=== PATIENT | female | born 1950 | race Asian ===

== ENCOUNTER 2019-04-15 14:30 | Inpatient (IN) | payer MEDICARE, SELFPAY ==
[2019-04-15] VITALS (8 sets, daily range): BP systolic 115–164; BP diastolic 50–70; PULSE 72–74; RESP 13–17; TEMP 36.6–38.5; O2SAT 97–99
--- NOTE | ~2019-04-15 | XR_ITS ---
EXAMINATION: XR chest 2V 04/15/2019 15:41 INDICATION: Cough and fever. PICC line placement. PROCEDURE: AP and lateral views of the chest COMPARISON: No prior studies for comparison. FINDINGS: The lungs are clear. The cardiomediastinal silhouette is within normal limits. There are no pleural effusions. There is no pneumothorax suspected. Right subclavian PICC line, tip in the ca udal aspect of the SVC. IMPRESSION: 1: NO ACUTE CARDIOPULMONARY DISEASE. Reviewed, dictated and finalized at location A. ING SPECIALIST
--- NOTE | 2019-04-15 14:36 | ED.GENADULT ---
HPI - General Adult General Chief complaint: Upper Respiratory Infection Stated complaint: cough/high blood sugar Time Seen by Provider: 04/15/19 14:35 Source: patient Mode of arrival: ambulatory Limitations: no limitations History of Present Illness HPI narrative: The pt is a 69 y/o female who presents to the ED with c/o a phlegm-producing cough that began 5 days ago. The pt states that she was seen at Urgent Care, where providers suspected that the pt has pneumonia. The pt reports fever, ROSA, sore throat, and chills, but denies CP, rhinorrhea, or sneezing. The pt has PMHX of DM, HTN, HLD, and cervical CA when she was younger. She last saw her doctor 2 weeks ago for TPN, which she receives due to malnutrition. She states that she has had poor nutrition since last June because eating is painful and makes her nauseous. complaint: Cough Onset (ago): day(s) Quality: other (phlegm-producing) Associated symptoms: fever/chills, headaches and other (sore throat) Related Data Home Medications Medication Instructions Recorded Confirmed Vitamin D2 5,000 unit PO DAILY 04/15/19 04/15/19 aspirin [Aspir-81] 1 mg PO DAILY 04/15/19 04/15/19 metoprolol succinate 200 mg PO DAILY 04/15/19 04/15/19 vitamin B complex [B 1 tablet PO DAILY 04/15/19 04/15/19 Complex-Vitamin B12] vitamin E 1,000 unit PO DAILY 04/15/19 04/15/19 Allergies Allergy/AdvReac Type Severity Reaction Status Date / Time No Known Allergies Allergy Verified 04/15/19 15:14 Review of Systems Review of Systems: All systems reviewed & are unremarkable except as noted in HPI and below Constitutional: Constitutional: Reports chills and Reports fever(s) ENT: Reports sore throat and Denies other (rhinorrhea, sneezing) Cardiovascular: Cardiovascular: Denies chest pain Respiratory: Respiratory: Reports cough Neurologic: Reports headache(s) REPLACED BY [facility] Past Medical History Medical History (Updated 04/15/19 @ 22:35 by Dorcas Mariee DO) Chronic anemia Iron deficiency anemia Diabetes Hyperlipidemia Hypertension On total parenteral nutrition Severe protein-calorie malnutrition on TPN 9:00 p.m. to 5:00 a.m. 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 Code status: Full code per EMR. She does not have advance directives. Smoking packs per day: 2 Smoking cigarettes per day: 40.0 Years smoked: 25 Smoking pack-years: 50.00 Smoking status: Former smoker Tobacco type: cigarettes Smoking end date: 03/18/89 Additional smoking assessment comments: The patient smoked 2 packs per for 25 years. She quit smoking 40 Alcohol intake: current Alcohol use details: The patient drinks an occasional glass a wine. Substance use: never Substance use type: does not use Living arrangements: with family Additional living arrangements comments: she lives in [place] with her of 29 years. Occupation/Education: occupation [employer]
--- NOTE | 2019-04-15 14:52 | ECG_ITS ---
Measurements Intervals [place] Rate: 75 P: -11 [place]: 123 QRS: -20 QRSD: 95 T: 26 QT: 348 QTc: 389 Interpretive Statements SINUS RHYTHM BASELINE ARTIFACT- I, II, III, AVR, AVL, AVF, V1-V2 NORMAL ECG Electronically Signed On 04-15-2019 16:05:29 [employer] by Timbo Spivey D.O.
[2019-04-15 15:15] LABS: Alveolar/Arterial O2 Gradient 31.1 mmHg; Base Excess ABG -1.6 mEq/l (+/-2.0); Device ROOM AIR; Fractional Inspired Oxygen 21 %; HCO3 ABG 22.3 mEq/l (22.0-26.0); Oxygen Content ABG 12.4 %vol (16.0-22.0); Oxyhemoglobin 92.1 % THb (90.0-100.0); PCO2 ABG 34.1 mmHg (35.0-45.0); PO2 ABG 77.8 mmHg (80.0-100.0); Site Drawn LEFT BRACHIAL; Total Hemoglobin 9.5 g/dL (12.0-18.0); pH ABG 7.433 (7.350-7.450)
[2019-04-15] MEDS: SODIUM CHLORIDE 0.9% IV 1,000 ML 999 ML IV CONT ×2 (15:16→17:05)
[2019-04-15] MEDS: ACETAMINOPHEN 325 MG TABLET 650 MG PO (15:16)
[2019-04-15 15:19] LABS: Basophils Percent Auto 0.2 % (0.2-1.2); Eosinophils Percent Auto 0.2 % (0-4.4); Hemoglobin 9.2 g/dL (12.0-15.0); Immature Granulocyte Absolute 0.07 K/mm3 (0.00-0.031); Immature Granulocyte Percent A 1.3 % (0-0.5); Immature Platelet Fraction Pct 8.6 % (0.9-11.2); Lymphocytes Absolute Auto 0.71 K/mm3 (0.9-3.2); Lymphocytes Percent Auto 12.7 % (18.3-44.2); Mean Corpuscular HGB Conc 30.7 g/dl (32-36); Mean Corpuscular Hemoglobin 22.8 pg (26-34); Mean Corpuscular Volume 74.4 fl (80-100); Monocytes Absolute Auto 0.2 K/mm3 (0.1-0.6); Monocytes Percent Auto 3.2 % (2.6-8.5); Neutrophils Absolute Auto 4.6 K/mm3 (1.3-6.7); Neutrophils Percent Auto 82.4 % (45.5-73.1); Nucleated Red Blood Cells Perc 0.5 % (0.0-0.2); Platelet Count Result 96 k/mm3 (150-375); Red Blood Count 4.03 M/mm3 (4.2-5.4); Red Cell Distribution Width 17.3 % (11.5-14.5); White Blood Count 5.6 K/mm3 (4.5-10.0)
[2019-04-15 15:30] LABS: Lactic Acid Reflex 1.6 mmol/L (0.7-2.1)
[2019-04-15 15:30] LABS: Add Urine Microscopic? YES; Appearance Urine Cloudy (Clear); Bacteria Urine Trace /hpf; Bilirubin Urine Negative (Negative); Blood Urine 2+ (Negative); Color Urine Yellow (Yellow); Glucose Urine UA 3+ mg/dL (Negative); Ketones Urine Negative (Negative); Leukocyte Esterase Ur Negative LEU/UL (Negative); Mucus Urine Rare /lpf; Nitrate Urine Negative (Negative); Protein Urine 1+ mg/dL (Negative); RBC Urine 0-2 /hpf (0-2); Specific Grav Ur 1.017 (1.001-1.035); Urobilinogen Urine Negative mg/dL (<2.0); WBC Urine 0-3 /hpf
[2019-04-15 15:32] LABS: Alanine Aminotransferase 35 U/L (4-35); Albumin Level 3.5 g/dL (3.5-5.1); Alkaline Phosphatase 197 U/L (38-126); Aspartate Amino Transferase 75 U/L (14-36); Bilirubin,Total 0.7 mg/dL (0.2-1.3); Blood Urea Nitrogen 28 mg/dL (7-17); Calcium 9.1 mg/dL (8.4-10.2); Carbon Dioxide 24 mmol/L (22-30); Chloride 94 mmol/L (98-107); Estimated CRCL calculation 40 ml/min; Estimated Glomerular Filt Rate > 60; Glucose 452 mg/dL (65-105); Potassium 3.8 mmol/L (3.4-5.0); Sodium 129 mmol/L (137-145)
[2019-04-15 15:44] LABS: CRP 25.6 mg/dL (<1.0)
--- NOTE | 2019-04-15 16:32 | PC.NURSE ---
PER [facility] EDP DR FREEDMAN PT MAY HAVE SOUP ORDERED, CALLED DIETARY AND PLACED ORDER AT THIS TIME.
[2019-04-15] MEDS: INSULIN HUMAN REGULAR (*BKC) 100 UNITS/ML IV PUSH (17:03)
[2019-04-15] MEDS: OSELTAMIVIR PHOSPHATE 30 MG CAPSULE PO (17:50)
--- NOTE | 2019-04-15 19:01 | ADMGEN ---
This patient, Arielle Marinelli, was admitted to 3 Medical Room 341-01. Patient/family oriented to hospital policies and general routines including ID bracelet, bed and alarms, visiting hours, pain management, procedures, bathroom and other care routines, personal items, smoking policy, room service/diet, and visiting hours. Valuables list has been completed. Information on how to activate the Rapid Response Team has been discussed. Patient/Family are encouraged to report perceived risks to care and to ask questions if they do not understand what they are told or what they should do. Received from ER via stretcher at 1800. Family at bedside.
[2019-04-15] MEDS: LACTATED RINGERS 1,000 ML 125 ML IV CONT (20:28)
[2019-04-15 20:49] LABS: Glucose Point of Care 380 (65-105)
[2019-04-15] MEDS: INSULIN ASPART (*BKC) 100 UNITS/ML SUB-Q (20:58)
--- NOTE | 2019-04-15 22:11 | PM.IMHP ---
H&P: HPI History of Present Illness Chief complaint: cold symptoms, weakness Narrative: date and time of patient contact: 04/15/2019 at 9:15 p.m. Arielle Marinelli is a 69 year old female with a past medical history of type 2 diabetes, chronic protein malnutrition status post Whipple procedure on TPN, and peripheral vascular disease who presented to the ER with cough and cold symptoms that began 5 days ago. Patient reports that she is always cold so She did not realize she had a fever. Her temperature on arrival to the ER was 101.3. She is chronically nauseated following her Whipple procedure in 2012. Her Whipple was performed due to perforated viscus as a complication of a routine EGD with biopsy In 2012. She has been having postnasal drip with a cough productive of a minimal amount of clear sputum. she has been having headaches, postnasal drip, sore throat, rhinorrhea, generalized body aches, and sneezing. Her daughter and have both been ill with similar symptoms. She does have intermittent formed stools mixed with diarrhea at baseline. She utilizes TPN due to chronic protein malnutrition. she is on TPN from 9:00 p.m. to 5:00 a.m. Saturday through Saturday. She gets a break from her TPN on Saturday and Saturday. she has been on TPN since June 2018. She was started on TPN when her weight was down to 90 lb. She stated at her heaviest weight she has ever been was around 110 lb. She is currently about 114 lb. The doctors at [facility] have told her that she will be on TPN until her weight reaches 120 lb. She denies any dysuria hematuria or changes in urgency or frequency. Review of Systems Review of Systems: Narrative: Except as documented in the HPI, all other systems were reviewed and are negative. FOR[facility]LY [facility], [facility] Past Medical History Medical History (Updated 04/15/19 @ 22:35 by Dorcas Mariee DO) Chronic anemia Iron deficiency anemia Diabetes Hyperlipidemia Hypertension On total parenteral nutrition Severe protein-calorie malnutrition on TPN 9:00 p.m. to 5:00 a.m. 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 Code status: Full code per EMR. She does not have advance directives. Smoking packs per day: 2 Smoking cigarettes per day: 40.0 Years smoked: 25 Smoking pack-years: 50.00 Smoking status: Former smoker Tobacco type: cigarettes Smoking end date: 03/18/89 Additional smoking assessment comments: The patient smoked 2 packs per for 25 years. She quit smoking 40 Alcohol intake: current Alcohol use details: The patient drinks an occasional glass a wine. Substance use: never Substance use type: does not use Living arrangements: with family Additional living arrangements comments: she lives in [place] with her of 29 years. 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 Gender i
[2019-04-16 00:55] LABS: Glucose Point of Care 282 (65-105)
[2019-04-16 06:00] VITALS: BP 144/52; PULSE 76; RESP 16; TEMP 36.9; O2SAT 96
[2019-04-16] MEDS: OSELTAMIVIR PHOSPHATE 30 MG CAPSULE PO (06:10)
[2019-04-16] MEDS: LACTATED RINGERS 1,000 ML 125 ML IV CONT (06:10)
[2019-04-16 06:36] LABS: Blood Urea Nitrogen 15 mg/dL (7-17); Calcium 7.9 mg/dL (8.4-10.2); Carbon Dioxide 23 mmol/L (22-30); Chloride 100 mmol/L (98-107); Estimated CRCL calculation 58 ml/min; Estimated Glomerular Filt Rate > 60; Glucose 287 mg/dL (65-105); Potassium 3.3 mmol/L (3.4-5.0); Sodium 132 mmol/L (137-145)
[2019-04-16 07:59] VITALS: PULSE 76
[2019-04-16] MEDS: VITAMIN E 1,000 UNIT CAPSULE 1000 UNIT PO (07:59)
[2019-04-16] MEDS: METOPROLOL SUCCINATE EXT REL 100 MG TABCR 200 MG PO (07:59)
[2019-04-16] MEDS: CHOLECALCIFEROL 1,000 UNIT TABLET 5000 UNITS PO (07:59)
[2019-04-16] MEDS: VITAMIN B COMPLEX CAPSULE 1 CAP PO (07:59)
[2019-04-16] MEDS: ASPIRIN 81 MG ENTERIC TABLET PO (07:59)
[2019-04-16 08:00] VITALS: BP 126/64; PULSE 70; PULSE 76; RESP 16; TEMP 36.2; O2SAT 96; O2SAT 98
[2019-04-16 08:15] LABS: Glucose Point of Care 286 (65-105)
[2019-04-16] MEDS: INSULIN ASPART (*BKC) 100 UNITS/ML SUB-Q ×2 (08:33→12:33)
[2019-04-16] MEDS: POTASSIUM CHLORIDE 20 MEQ TABLET 40 MEQ PO (08:39)
[2019-04-16] MEDS: ACETAMINOPHEN 325 MG TABLET 650 MG PO (10:38)
[2019-04-16 12:07] LABS: Glucose Point of Care 244 (65-105)
[2019-04-16 14:00] VITALS: BP 126/64; PULSE 70; RESP 16; TEMP 36.2; O2SAT 98
--- NOTE | 2019-04-16 15:03 | PM.DS ---
DS: Diagnosis Admitting Diagnosis Admitting Diagnosis: Influenza due to other identified influenza virus with other respiratory manifestations Discharge Diagnosis (1) Influenza A: Code(s): J10.1 - Influenza due to other identified influenza virus with other respiratory manifestations Status: Acute Assessment and Plan: Patient was beyond the usual window for Tamiflu administration; However given her persistent fevers severity of illness to resulted in hospitalization, Tamiflu was administered. Patient is doing much better today; feels less feverish, body aches improving, cough is improving, as well as, shortness of breath. Afebrile for roughly 24 hours, VSS, sat 98% on RA, no leukocytosis, lung exam showed some bibasilar crackles, but otherwise unremarkable. Tylenol as needed for pain or fever. Recommended patient stay hydrated. IS ordered and recommended on discharge Follow up with PCP in 1-2 weeks (2) Hyperglycemia due to type 2 diabetes mellitus: Qualifiers: Diabetes mellitus assistant terminal manager insulin use: with assistant terminal manager use Qualified Code(s): E11.65 - Type 2 diabetes mellitus with hyperglycemia; Z79.4 - MCC (current) use of insulin Code(s): E11.65 - Type 2 diabetes mellitus with hyperglycemia Status: Acute Assessment and Plan: BGL in 200s today. Resume home medication regimen at discharge Follow up with PCP for further management DS: Summary Hospital Course Reason for hospitalization: Influenza A, hyperglycemia with DMII Hospital Course: Patient is a 69 yo F with history of type 2 diabetes, chronic protein malnutrition status post Whipple procedure on TPN, and peripheral vascular disease who presented to the ER on 04/15 with cough and cold symptoms that began 5 days ago. Patient reported feeling cold and did not realize she had a fever; she was found to have a temp of 101.3. She had been having a cough with clear sputum, headaches, postnasal drip, sore throat, rhonorrhea, generalized body aches, and sneezing. Flu swab was positive for Flu A in the ER. Please see H&P for further details Presenting VS: BP 164/70, HR 74, RR 17, Temp 101.3, sat 99% RA Presenting Pertinent labs: H&H 9.2/30.0, plt 6, Na 129 (04/16 132), BGL 452 (04/16 244), AST 75, ALT 35, Alk phos 197, CRP 25.6. CBC, CMP, ABG, UA otherwise unremarkable Micro: BC negative to date Imagin/29 CXR IMPRESSION: 1: NO ACUTE CARDIOPULMONARY DISEASE. ECG: Interpretive Statements SINUS RHYTHM BASELINE ARTIFACT- I, II, III, AVR, AVL, AVF, V1-V2 NORMAL ECG Patient was admitted to the hospitalist service for further evaluation and observation of Flu. Patient was started on Tamiflu despite being outside the usual window for administration due to severity of symptoms/need for hospitalization. She was continued on IVF for hydration and Tylenol for pain/fever. The day after admission, patient had significantly improved, clinically, with improved symptoms, resolved fever for roughly 24 hours and stable VS, statting in high 90s on RA. Patient felt well enough to return home. She was instructed to follow up with PCP after discharge. She was to continue with TPN per her GI specialist recommendations. Tylenol for fevers and Tamiflu until completion of 5 days total. IS was recommended and encouraged. Patient was agreeable and comfortable with plan for discharge on 04/16. Patient was hemodynamically stable and in improved condition on discharge. Status at Discharge Overall status at discharge: patient is progressing back to baseline Time Spent with Patient Time attestation: Total time spent providing and/or coordinating discharge services: 35 minutes Time spent: Greater than 30 minutes Exam Narrative: Exam Narrative: Patient lying in semi-ferrer's position at time of visit Const: General: comfortable, no acute distress, well developed and ill appearing acu
== END 2019-04-16 16:10 | disposition home health service (06) | DRG 193 ==
LOC: ANHED 16:48 → ANH3MED 22:21
PROVIDERS: Physician Assistant; Admitting Provider Family Medicine; Emergency Provider Emergency Medicine; Visit Provider Family Medicine
DX: J10.1 Influenza due to other identified influenza virus with other respiratory manifestations (principal); E43 Unspecified severe protein-calorie malnutrition; E11.65 Type 2 diabetes mellitus with hyperglycemia; I10 Essential (primary) hypertension; E78.5 Hyperlipidemia, unspecified; Z68.20 Body mass index [BMI] 20.0-20.9, adult; Z85.41 Personal history of malignant neoplasm of cervix uteri; E11.51 Type 2 diabetes mellitus with diabetic peripheral angiopathy without gangrene
CPT/HCPCS: 36415; 36600; 51701; 71046; 80048; 80053; 81001; 82805; 83605; 85025; 85055; 86140; 87040; 87804; 93005; 96360; 96361; 99285; A9270; J1815; J7030; J7120